=== PATIENT | male | born 1970 | race African-American/Black ===

== ENCOUNTER 2020-05-04 13:31 | Emergency (ER) | payer OTHER, SELFPAY ==
[2020-05-04] MEDS ORDERED: HYDROcodone/Acetaminophen 5/325 mg Tablet ONE (13:48)
== END 2020-05-04 14:43 | disposition home or self-care (01) ==
LOC: MADERS 13:31
DX: T20.26XA Burn of second degree of forehead and cheek, initial encounter (principal); T22.212A Burn of second degree of left forearm, initial encounter; T31.0 Burns involving less than 10% of body surface; Z79.82 Long term (current) use of aspirin; Z79.899 Other long term (current) drug therapy; W40.8XXA Explosion of other specified explosive materials, initial encounter
CPT/HCPCS: 99283

== ENCOUNTER 2023-05-24 19:01 | Emergency (ER) | payer OTHER, SELFPAY | END 2023-05-24 20:42 | disposition home or self-care (01) | LOC: MADERS 19:01 | DX: M79.631 Pain in right forearm (principal); I10 Essential (primary) hypertension ==

== ENCOUNTER 2024-03-18 18:14 | Emergency (ER) | payer OTHER ==
[2024-03-18] MEDS ORDERED: Acetaminophen 500 MG TAB ONE (19:07)
[2024-03-18] MEDS ORDERED: Ketorolac Tromethamine 60 MG/2 ML VIAL ONE (19:08)
== END 2024-03-18 20:07 | disposition home or self-care (01) ==
LOC: MADERS 18:14
DX: M25.461 Effusion, right knee (principal); I10 Essential (primary) hypertension
CPT/HCPCS: 96372; 99283; J1885